=== PATIENT | male | born 1995 | race Caucasian/White ===

== ENCOUNTER 2019-03-17 11:43 | Emergency (ER) | payer OTHER ==
[~2019-03-17] VITALS: Ht 170.2 cm; Wt 68.6 kg
[2019-03-17 14:20] VITALS: BP 122/89
--- NOTE | 2019-03-17 14:29 | REP ---
BILATERAL TIBIA/FIBULA: HISTORY: Pain. RIGHT TIBIA/FIBULA: There is no acute fracture or dislocation. The joint spaces are normal in appearance. An ossified density is present inferior to the lateral malleolus. This represents ligamentous or tendon calcification or an accessory ossification center. IMPRESSION: There is no acute fracture or dislocation. LEFT TIBIA/FIBULA: There is no acute fracture or dislocation. The joint spaces are normal in appearance. IMPRESSION: There is no acute fracture or dislocation. Electronically Signed by Latrell Martinez MD 03/17/2019 02:30 P
== END 2019-03-17 14:24 | disposition home or self-care (01) ==
LOC: M ED 11:43
DX: M79.661 Pain in right lower leg (principal); M79.662 Pain in left lower leg